=== PATIENT | male | born 1980 | race American Indian/Alaskan Native ===

== ENCOUNTER 2017-12-17 01:53 | Emergency (ER) | payer SELFPAY ==
[2017-12-17] MEDS ORDERED: ULTRAM ONE (04:48)
[2017-12-17] MEDS ORDERED: LIDOCAINE VISCOUS 2% ONE (04:50)
[2017-12-17] MEDS ORDERED: ULTRAM PO ONE (05:10)
[2017-12-17] MEDS ORDERED: LIDOCAINE VISCOUS 2% PO ONE (05:15)
[2017-12-17] MEDS ORDERED: LIDOCAINE VISCOUS 2% MM NR (05:15)
--- NOTE | 2017-12-17 05:51 | Emergency Department Report ---
ED ENT HPI - General Chief complaint: Dental/Oral Stated complaint: TOOTHACHE Time Seen by Provider: 12/17/17 05:44 Source: patient Mode of arrival: Ambulatory Limitations: No Limitations - History of Present Illness Initial comments: Patient is 37-year-old -[place] male who presents for dental pain patient with history of infected dental caries hire has not been able to see the dentist complains of 410 dental pain at this time aching throbbing pain is exacerbated by hot and cold sensation there is no throat pain no ear pain no fever no chills no nausea vomiting MD complaint: tooth pain Onset/Timin -: week(s) Location: tooth # (16) Severity: moderate Severity scale (0 -10): 5 Quality: aching Consistency: constant Improves with: none Worsens with: eating, other (hot and cold stimuli) Context- Dental: history of dental caries, poor dental care Associated Symptoms: toothache. denies: fever, cough, gum swelling, pain with swallowing, sore throat, tinnitus, hearing loss, discharge from ear, rhinorrhea - Related Data Previous Rx's Medication Instructions Recorded Last Taken Type Amoxicillin 500 mg PO TID #30 capsule 12/17/17 Unknown Rx Chlorhexidine Mouthwash [Peridex] 15 ml MM BID #1 bottle 12/17/17 Unknown Rx traMADol [Ultram] 50 mg PO Q8HR PRN #9 tablet 12/17/17 Unknown Rx Allergies Allergy/AdvReac Type Severity Reaction Status Date / Time No Known Allergies Allergy Unverified 12/17/17 02:06 ED Dental HPI - General Chief complaint: Dental/Oral Stated complaint: TOOTHACHE Time Seen by Provider: 12/17/17 05:44 Source: patient Mode of arrival: Ambulatory Limitations: No Limitations - Related Data Previous Rx's Medication Instructions Recorded Last Taken Type Amoxicillin 500 mg PO TID #30 capsule 12/17/17 Unknown Rx Chlorhexidine Mouthwash [Peridex] 15 ml MM BID #1 bottle 12/17/17 Unknown Rx traMADol [Ultram] 50 mg PO Q8HR PRN #9 tablet 12/17/17 Unknown Rx Allergies Allergy/AdvReac Type Severity Reaction Status Date / Time No Known Allergies Allergy Unverified 12/17/17 02:06 ED Review of Systems ROS: Stated complaint: TOOTHACHE Other details as noted in HPI Constitutional: denies: chills, fever Eyes: denies: eye pain, eye discharge, vision change ENT: dental pain Respiratory: denies: cough, shortness of breath, wheezing Cardiovascular: denies: chest pain, palpitations Endocrine: no symptoms reported Gastrointestinal: denies: abdominal pain, nausea, diarrhea Genitourinary: denies: urgency, dysuria Musculoskeletal: denies: back pain, joint swelling, arthralgia Skin: denies: rash, lesions Neurological: denies: headache, weakness, paresthesias Psychiatric: denies: anxiety, depression Hematological/Lymphatic: denies: easy bleeding, easy bruising ED Past Medical Hx - Past Medical History Previous Medical History?: No - Surgical History Past Surgical History?: No - Social History Smoking Status: Current Every Day Smoker Substance Use Type: Alcohol - Medications Home Medications: Home Medications Medication Instructions Recorded Confirmed Last Taken Type Amoxicillin 500 mg PO TID #30 capsule 12/17/17 Unknown Rx Chlorhexidine Mouthwash [Peridex] 15 ml MM BID #1 bottle 12/17/17 Unknown Rx traMADol [Ultram] 50 mg PO Q8HR PRN #9 tablet 12/17/17 Unknown Rx ED Physical Exam - General Limitations: No Limitations General appearance: alert, in no apparent distress - Head Head exam: Present: atraumatic, normocephalic - Eye Eye exam: Present: normal appearance - ENT ENT exam: Present: normal exam, mucous membranes moist, TM's normal bilaterally - Expanded ENT Exam Expanded Teeth exam: Present: dental caries, dental tenderness # (16) Throat exam: Positive: normal inspection. Negative: tonsillar erythema, tonsillomegaly, tonsillar exudate, R peritonsillar mass, L peritonsillar mass - Neck Neck exam: Present: normal inspection, full ROM. Absent: tenderness, lymphadenopathy, thyromegaly - Respiratory Respiratory exam: Present: normal lung sounds bilaterally. Absent: respiratory distress, wheezes, stridor, chest wall tenderness - Cardiovascular Cardiovascular Exam: Present: regular rate, normal rhythm. Absent: systolic murmur, diastolic murmur, rubs, gallop - GI/Abdominal GI/Abdominal exam: Present: soft, normal bowel sounds - Rectal Rectal exam: Present: deferred - Extremities Exam Extremities exam: Present: normal inspection - Back Exam Back exam: Present: normal inspection, full ROM, CVA tenderness (R) - Neurological Exam Neurological exam: Present: alert, oriented X3, CN II-XII intact, normal gait, reflexes normal - Psychiatric Psychiatric exam: Present: normal affect, normal mood - Skin Skin exam: Present: warm, dry, intact, normal color. Absent: rash ED Course Vital Signs 12/17/17 12/17/17 01:58 05:13 Temperature 98.6 F Pulse Rate 81 Respiratory 18 18 Rate Blood Pressure 150/76 O2 Sat by Pulse 97 Oximetry ED Medical Decision Making - Medical Decision Making Patient was infected dental caries in #16 mild gum erythema or swelling no uvula swelling there is no fever no chills patient is tolerating by mouth plan amoxicillin . peridex, Ultram when necessary pain follow-up [facility] in 2-3 days patient verbalizes understanding and agreement with same patient was DC'd home in stable condition at this time DX Critical care attestation.: If time is entered above; I have spent that time in minutes in the direct care of this critically ill patient, excluding procedure time. ED Disposition Clinical Impression: Infected dental carries Disposition: DC-01 TO HOME OR SELFCARE Is pt being admited?: No Does the pt Need Aspirin: No Condition: Good Instructions: Dental Caries (ED) Prescriptions: Amoxicillin 500 mg PO TID #30 capsule Chlorhexidine Mouthwash [Peridex] 15 ml MM BID #1 bottle traMADol [Ultram] 50 mg PO Q8HR PRN #9 tablet PRN Reason: Pain Referrals: PRIMARY CARE, [Primary Care Provider] - 3-5 Days Forms: Work/School Release Form(ED) Time of Disposition: 05:54
[2017-12-17 06:34] VITALS: BP 146/74
== END 2017-12-17 06:34 | disposition home or self-care (01) ==
LOC: ED 01:53
DX: K02.9 Dental caries, unspecified (principal); F17.200 Nicotine dependence, unspecified, uncomplicated
CPT/HCPCS: 99282